=== PATIENT | male | born 1955 | race Caucasian/White ===

== ENCOUNTER 2022-10-08 22:39 | Inpatient (IN) | payer MEDICARE, OTHER ==
[~2022-10-08] VITALS: Ht 175.3 cm; Wt 58.2 kg
[2022-10-08 23:11] LABS: BASOPHILS ABSOLUTE AUTO 0.04 K/mm3 (0.00-0.23); BASOPHILS PERCENT AUTO 0 % (0-2); EOSINOPHILS PERCENT AUTO 0 % (0-6); Hematocrit 36.2 % (37.0-53.0); Hemoglobin 12.2 g/dL (13.5-17.5); IMMATURE GRAN ABSOLUTE AUTO 0.43 K/mm3 (0.00-0.10); IMMATURE GRAN PERCENT AUTO 2 % (0-1); LYMPHOCYTES ABSOLUTE AUTO 1.03 K/mm3 (0.84-5.20); LYMPHOCYTES PERCENT AUTO 4 % (21-46); MONOCYTES ABSOLUTE AUTO 0.96 K/mm3 (0.16-1.47); MONOCYTES PERCENT AUTO 3 % (4-13); Mean Corpuscular HGB 30.3 pg (26.0-34.0); Mean Corpuscular HGB Conc 33.7 g/dL (31.5-36.5); Mean Corpuscular Volume 90 fL (80-100); Mean Platelet Volume 9.2 fL (9.1-12.4); NEUTROPHILS ABSOLUTE AUTO 25.98 K/mm3 (1.96-9.15); NEUTROPHILS PERCENT AUTO 91 % (41-73); Platelet Count 368 K/mm3 (150-400); RDW Coefficient Variation 13.2 % (11.7-14.2); RDW Standard Deviation 43.4 fL (35.1-46.3); Red Blood Cell Count 4.03 M/mm3 (4.30-5.90); White Blood Cell Count 28.44 K/mm3 (4.00-11.30)
[2022-10-08 23:27] LABS: Albumin, Blood 2.7 g/dL (3.4-5.0); Albumin/Globulin Ratio 0.5 (0.8-1.8); Bun/Creatinine Ratio 31.7 (12.0-20.0); Calcium, Blood 9.1 mg/dL (8.5-10.1); Creatinine, Blood 0.95 mg/dL (0.60-1.20); Globulin, Blood 5.3 g/dL (2.2-4.0); Potassium, Blood 4.9 mmol/L (3.5-5.5)
[2022-10-08 23:59] LABS: Influenza B, PCR NEGATIVE (NEGATIVE); Resp Syncytial Virus, PCR NEGATIVE (NEGATIVE); SARS-Cov-2 (COVID-19) PCR, MMC NEGATIVE (NEGATIVE)
[2022-10-09 00:03] LABS: Influenza A, PCR POSITIVE (NEGATIVE)
[2022-10-09 02:03] LABS: Source, Urine Clean Catch
[2022-10-09 02:37] LABS: Appearance, Urine Clear (Clear); Bilirubin, Urine Neg (Neg); Blood, Urine 4+ (Neg); Color, Urine Yellow (P-Yellow); Glucose Qualitative, Urine Neg (Neg); Ketones, Urine 2+ (Neg); Leukocyte Esterase, Urine 1+ (Neg); Nitrite, Urine Neg (Neg); Protein, Urine 3+ (Neg); Urobilinogen, Urine 2+ (Normal)
[2022-10-09 02:49] LABS: Bacteria Mod /hpf; Red Blood Cells, Urine 0-2 /hpf (0-2); Squamous Epithelial Cells Mod /hpf (Few)
[2022-10-09 02:59] LABS: U Amphetamine Screen Not Detected; U Barbituate Screen Not Detected; U Benzodiazapine Screen Not Detected; U Buprenorphine Screen Not Detected; U Cannabinoids Screen Not Detected; U Cocaine Screen Not Detected; U Methadone Screen Not Detected; U Methamphetamine Screen Not Detected; U Opiates Screen DETECTED; U Oxycodone Screen Not Detected; U Phencyclidine Screen Not Detected; U Propoxyphene Screen Not Detected
[2022-10-09 05:58] LABS: BASOPHILS ABSOLUTE AUTO 0.03 K/mm3 (0.00-0.23); BASOPHILS PERCENT AUTO 0 % (0-2); EOSINOPHILS ABSOLUTE AUTO 0.01 K/mm3 (0.00-0.68); EOSINOPHILS PERCENT AUTO 0 % (0-6); Hematocrit 31.3 % (37.0-53.0); Hemoglobin 10.6 g/dL (13.5-17.5); IMMATURE GRAN ABSOLUTE AUTO 0.23 K/mm3 (0.00-0.10); IMMATURE GRAN PERCENT AUTO 1 % (0-1); LYMPHOCYTES ABSOLUTE AUTO 1.24 K/mm3 (0.84-5.20); LYMPHOCYTES PERCENT AUTO 6 % (21-46); MONOCYTES ABSOLUTE AUTO 0.77 K/mm3 (0.16-1.47); MONOCYTES PERCENT AUTO 4 % (4-13); Mean Corpuscular HGB 30.3 pg (26.0-34.0); Mean Corpuscular HGB Conc 33.9 g/dL (31.5-36.5); Mean Corpuscular Volume 89 fL (80-100); Mean Platelet Volume 9.4 fL (9.1-12.4); NEUTROPHILS ABSOLUTE AUTO 19.11 K/mm3 (1.96-9.15); NEUTROPHILS PERCENT AUTO 89 % (41-73); Platelet Count 316 K/mm3 (150-400); RDW Coefficient Variation 13.3 % (11.7-14.2); RDW Standard Deviation 43.8 fL (35.1-46.3); White Blood Cell Count 21.39 K/mm3 (4.00-11.30)
[2022-10-09 06:14] LABS: Albumin, Blood 2.2 g/dL (3.4-5.0); Albumin/Globulin Ratio 0.5 (0.8-1.8); Bilirubin, Total 0.9 mg/dL (0.1-1.0); Bun/Creatinine Ratio 30.9 (12.0-20.0); Calcium, Blood 8.4 mg/dL (8.5-10.1); Creatinine, Blood 0.91 mg/dL (0.60-1.20); Globulin, Blood 4.3 g/dL (2.2-4.0); Potassium, Blood 3.9 mmol/L (3.5-5.5); Total Protein, Blood 6.5 g/dL (6.4-8.2)
--- NOTE | 2022-10-09 17:58 | NUR ---
Patient admitted for Influenza A, droplet precautions in place. Patient AOx2, disoriented to time/situation. Nicotine patch placed on right shoulder. IV ABX & Solu-medrol given. Patient resting comfortably in bed. Continent at baseline, skin clead/dry/intact. Since hospitialized patient has been incontinent of bowel/bladder. Large soft BM this shift. Patient resting comfortably this afternoon, dry cough, Oxygen 3lpm. [facility]. Will continue plan of care & consult with care management for DC planing.
[2022-10-10 05:18] LABS: Hematocrit 32.1 % (37.0-53.0); Hemoglobin 10.5 g/dL (13.5-17.5); Mean Corpuscular HGB 29.5 pg (26.0-34.0); Mean Corpuscular HGB Conc 32.7 g/dL (31.5-36.5); Mean Corpuscular Volume 90 fL (80-100); Mean Platelet Volume 9.7 fL (9.1-12.4); Platelet Count 311 K/mm3 (150-400); RDW Coefficient Variation 13.3 % (11.7-14.2); RDW Standard Deviation 44.5 fL (35.1-46.3); Red Blood Cell Count 3.56 M/mm3 (4.30-5.90); White Blood Cell Count 10.99 K/mm3 (4.00-11.30)
--- NOTE | 2022-10-10 05:36 | NUR ---
Rn summary: Patient is pleasant and quiet. He has had no notable cough. He does have expiratory wheezes left lung with some courseness. Pt is on 3.5 liters, sats 98%. will titrate down to 2.5 liters. Pt did not eat dinner but has had 3 containers of whole milk this shift. He is weak, incontinent of urine with attends in place. He has rested well. Call light in reach.
[2022-10-10 05:56] LABS: Albumin, Blood 1.9 g/dL (3.4-5.0); Albumin/Globulin Ratio 0.4 (0.8-1.8); Bilirubin, Total 0.5 mg/dL (0.1-1.0); Bun/Creatinine Ratio 38.5 (12.0-20.0); Calcium, Blood 8.2 mg/dL (8.5-10.1); Creatinine, Blood 0.6 mg/dL (0.60-1.20); Globulin, Blood 4.3 g/dL (2.2-4.0); Potassium, Blood 4.3 mmol/L (3.5-5.5); Total Protein, Blood 6.2 g/dL (6.4-8.2)
[2022-10-10 07:11] LABS: BAND PERCENT MAN 8 % (0-8); BASOPHILS PERCENT MAN 0 % (0-2); EOSINOPHILS PERCENT MAN 0 % (0-6); LYMPHOCYTES ABSOLUTE MAN 0.43 K/mm3 (0.84-5.20); LYMPHOCYTES PERCENT MAN 4 % (21-46); MONOCYTES PERCENT MAN 0 % (4-13); NEUTROPHILS ABSOLUTE MAN 10.55 K/mm3 (1.96-9.15); SEG NEUTROPHILS PERCENT MAN 88 % (41-73); TOTAL CELLS COUNTED 100
--- NOTE | 2022-10-10 17:37 | NUR ---
DAYSHIFT SUMMARY Patient doing well, no acute changes to patient status. PT/OT evaluated patient today, patient worked with therapy, but would not get OOB. Patient is AOx2, but confused at times. Patient told therapy he is wheelchair bound. He is incontinent of B/B, unsure if that is his baseline. Titrated to 1lpm. Vitals stable. Transitioned from IV Solu-medrol to PO Prednisone, IV ABX given. Will continue plan of care, awaiting discharge planning.
[2022-10-11 05:15] LABS: Hematocrit 30.7 % (37.0-53.0); Hemoglobin 10.2 g/dL (13.5-17.5); Mean Corpuscular HGB 29.7 pg (26.0-34.0); Mean Corpuscular HGB Conc 33.2 g/dL (31.5-36.5); Mean Corpuscular Volume 89 fL (80-100); Mean Platelet Volume 9.9 fL (9.1-12.4); Platelet Count 315 K/mm3 (150-400); RDW Coefficient Variation 13.2 % (11.7-14.2); RDW Standard Deviation 43.3 fL (35.1-46.3); Red Blood Cell Count 3.44 M/mm3 (4.30-5.90); White Blood Cell Count 11.07 K/mm3 (4.00-11.30)
[2022-10-11 05:40] LABS: Albumin/Globulin Ratio 0.5 (0.8-1.8); Bilirubin, Total 0.4 mg/dL (0.1-1.0); Bun/Creatinine Ratio 42.2 (12.0-20.0); Calcium, Blood 8.5 mg/dL (8.5-10.1); Creatinine, Blood 0.55 mg/dL (0.60-1.20); Globulin, Blood 4.3 g/dL (2.2-4.0); Total Protein, Blood 6.3 g/dL (6.4-8.2)
--- NOTE | 2022-10-11 05:56 | NUR ---
MANAGER CASINO SUMMARY: A&Ox2-3. QUIET AND ANSWERS QUESTIONS, OCCASIONALLY, BUT MOSTLY AVOIDS EYE CONTACT AND DOES NOT ANSWER QUESTIONS. DID NOT EAT ANY OF HIS DINNER LAST NIGHT. INCONTINENT OF URINE AND CHANGED TWICE T/O THE NIGHT. VSS. LABS DRAWN THIS AM. CALL FROM LAB STATING PRELIM BLOOD CULTURES POSITIVE FOR GRAM+ BACILLI AND WILL BE REVIEWED BY MICRO THIS AM. TELE GRETTA W/ [facility]. ASYMPTOMATIC. WILL REPORT TO ONCOMING RN.
[2022-10-11 06:04] LABS: BAND PERCENT MAN 3 % (0-8); BASOPHILS PERCENT MAN 0 % (0-2); EOSINOPHILS PERCENT MAN 0 % (0-6); LYMPHOCYTES % ATYPICAL MANUAL 2 % (0-0); LYMPHOCYTES ABSOLUTE MAN 1.21 K/mm3 (0.84-5.20); LYMPHOCYTES PERCENT MAN 9 % (21-46); MONOCYTES ABSOLUTE MAN 0.33 K/mm3 (0.16-1.47); MONOCYTES PERCENT MAN 3 % (4-13); NEUTROPHILS ABSOLUTE MAN 9.52 K/mm3 (1.96-9.15); SEG NEUTROPHILS PERCENT MAN 83 % (41-73); TOTAL CELLS COUNTED 100
--- NOTE | 2022-10-11 18:14 | NUR ---
PT HAS BEEN AOX4 AND COOPERATIVE OF CARE. PT IS INCONTENT AND DOES NOT REQUEST URINAL. PT DOES HAVE A BIT OF A FLAT AFFECT AT TIMES. CALL LIGHT IS WITHIN REACH AND BED ALARM IN PLACE WILL CONTINUE TO MONITOR.
--- NOTE | 2022-10-12 04:15 | NUR ---
SHIFT SUMMARY; NO ACUTE CHANGES OVERNIGHT. PT RESTED IN BED THROUGHOUT THE NIGHT. PT IS AXO X3. PT DOES NOT USE THE CALL LIGHT BUT RATHER REPORTS TO STAFF WHEN HIS ATTENDS ARE WET. PT HAS NOT AMBULATED YET. WHEN PT IS SLEEPING HIS HR BRADYS DOWN TO LOW 39 FOR A SECOND BEFORE IT REMAINS STABLE IN THE 40'S. CIWA DONE EARLY THIS EVENING, THE SCORE WAS 3, INDICATING STABLE WITHDRAWL IF PT IS INFACT WITHDRAWLING. PT WITH NO TREMORS, N/V, HEADACHE, TACTILE, AUDITORY OR VISUAL HALLUCINATIONS AT THIS TIME. PT CURRENTLY RESTING IN BED WITH THE BED IN THE LOWEST POSITION AND THE CALL LIGHT AT BEDSIDE.
[2022-10-12 05:44] LABS: Albumin, Blood 2.1 g/dL (3.4-5.0); Albumin/Globulin Ratio 0.5 (0.8-1.8); Bilirubin, Total 0.4 mg/dL (0.1-1.0); Bun/Creatinine Ratio 46.1 (12.0-20.0); Calcium, Blood 8.7 mg/dL (8.5-10.1); Creatinine, Blood 0.54 mg/dL (0.60-1.20); Globulin, Blood 4.4 g/dL (2.2-4.0); Potassium, Blood 4.2 mmol/L (3.5-5.5); Total Protein, Blood 6.5 g/dL (6.4-8.2)
--- NOTE | 2022-10-12 16:40 | NUR ---
NO ACUTE CHANGES AOX4 AND COOPERATIVE OF CARE. PT RESTING IN BED AND DOES NOT CALL WHEN HE NEEDS TO VOID. PT IS INCONTENT AND WILL TELL CAREGIVERS WHEN HE NEEDS CHANGED. NO DISTRESS NOTED AT THIS TIME WILL CONTINUE TO MONITOR.
--- NOTE | 2022-10-13 04:24 | NUR ---
SHIFT SUMMARY; NO ACUTE CHANGES OVERNIGHT. THE PTS O2 SATS REMAIN STABLE ON 2L NC. THE PT DOES RUN BRADYCARDIC THROUGHOUT THE NIGHT, GOING LOW AT 36 FOR A SECOND BEFORE STABLIZNG BETWEEN 45-48 WHILE SLEEPING. WHEN THE PT IS AWAKE THE, PTS HEART RATE IS RIGHT AROUND 55 BPM. PT CONTINUES TO HAVE A FLAT, RATHER WITHDRAWN AFFECT. PT IS AX0 X3-4, ABLE TO FOLLOW COMMANDS. PT REMAINS INCONTINENT THROUGHOUT THE NIGHT, HOWEVER THE PT IS ABLE TO COMMUNICATE WHEN HIS ATTENDS ARE WET AND NEED TO BE CHANGED. KADY PT IS AWAITING PLACEMENT TO BE DC'D. PRESENTLY THE PT IS RESTING IN BED WITH THE BED IN THE LOWEST POSITION AND THE CALL LIGHT IN THE BED WITH THE PT.
[2022-10-13 05:31] LABS: Hematocrit 33.4 % (37.0-53.0); Hemoglobin 10.9 g/dL (13.5-17.5)
[2022-10-13 05:56] LABS: Albumin, Blood 2.1 g/dL (3.4-5.0); Albumin/Globulin Ratio 0.5 (0.8-1.8); Bilirubin, Total 0.5 mg/dL (0.1-1.0); Bun/Creatinine Ratio 39.8 (12.0-20.0); Calcium, Blood 8.9 mg/dL (8.5-10.1); Creatinine, Blood 0.5 mg/dL (0.60-1.20); Globulin, Blood 4.5 g/dL (2.2-4.0); Potassium, Blood 3.9 mmol/L (3.5-5.5); Total Protein, Blood 6.6 g/dL (6.4-8.2)
--- NOTE | 2022-10-13 11:35 | NUR ---
Spoke with Dr Lopez prior to Pt visit and discussed case. Pt has been declining offers to get out of bed and is refusing to eat. Spoke with Primary RN Nina and discussed case. Pt requested ensure shake and is no longer requiring oxygen support. Brief supportive visit with Pt to establish rapport. Pt resting in bed and appears weak and frail. Pt reports enjoying his ensure shake. [facility]. He reports no family. Encouraged Pt to get out of bed when offered to assist with strength and overall well being. Ended visit to allow Pt to rest. Pt agreeable for F/U visits. Palliative Care will remain available.
--- NOTE | 2022-10-13 16:24 | NUR ---
SHIFT SUMMARY PT INCONT/CONT THIS SHIFT. POOR APPETITE BUT EATING SOME. PT LIKES CHOCOLATE ENSURES. WORKED WITH OT AND GOT UP TO CHAIR WITH MINMAL ASSIST. LITTLE MOVITATION TO DO MUCH. PT WANTING TO GET BACK IN BED, BUT ENCOURAGED TO STAY UP FOR DINNER IF POSSIBLE. PT STATES HE WILL TRY AT THIS TIME. TITRATED OFF OF O2 THIS AM AND TOLERATING RA AT 98%. NO OTHER ACUTE CHANGES IN ASSESSMENT AT THIS TIME. VS REVIEWED. CALL LIGHT IN REACH. DENIES OTHER NEEDS AT THIS TIME.
--- NOTE | 2022-10-14 05:14 | NUR ---
SHIFT SUMMARY NO ACUTE CHANGES OVERNIGHT. PT HAS A FLAT AFFECT, WITHDRAWN BUT COOPERATIVE WITH CARE. BEDREST. DENIES PAIN. VSS. POOR APPETITE. ENC TO DRINK AND OFFERED ENSURE. TOLERATING PO INTAKE DENIES N/V. DENIES CHEST PAIN AND SOB. SLEPT GOOD OVERNIGHT. CALL LIGHT WITHIN REACH. WILL PROVIDE REPORT TO ONCOMING NURSE.
[2022-10-14 06:51] LABS: BASOPHILS ABSOLUTE AUTO 0.01 K/mm3 (0.00-0.23); BASOPHILS PERCENT AUTO 0 % (0-2); EOSINOPHILS ABSOLUTE AUTO 0.03 K/mm3 (0.00-0.68); EOSINOPHILS PERCENT AUTO 0 % (0-6); Hematocrit 34.1 % (37.0-53.0); Hemoglobin 11.3 g/dL (13.5-17.5); IMMATURE GRAN ABSOLUTE AUTO 0.23 K/mm3 (0.00-0.10); IMMATURE GRAN PERCENT AUTO 2 % (0-1); LYMPHOCYTES ABSOLUTE AUTO 2.33 K/mm3 (0.84-5.20); LYMPHOCYTES PERCENT AUTO 22 % (21-46); MONOCYTES ABSOLUTE AUTO 1.09 K/mm3 (0.16-1.47); MONOCYTES PERCENT AUTO 10 % (4-13); Mean Corpuscular HGB 29.7 pg (26.0-34.0); Mean Corpuscular HGB Conc 33.1 g/dL (31.5-36.5); Mean Corpuscular Volume 90 fL (80-100); Mean Platelet Volume 9.8 fL (9.1-12.4); NEUTROPHILS ABSOLUTE AUTO 7.12 K/mm3 (1.96-9.15); NEUTROPHILS PERCENT AUTO 66 % (41-73); Platelet Count 353 K/mm3 (150-400); RDW Coefficient Variation 12.9 % (11.7-14.2); RDW Standard Deviation 41.9 fL (35.1-46.3); Red Blood Cell Count 3.81 M/mm3 (4.30-5.90); White Blood Cell Count 10.81 K/mm3 (4.00-11.30)
[2022-10-14 07:12] LABS: Albumin, Blood 2.3 g/dL (3.4-5.0); Albumin/Globulin Ratio 0.6 (0.8-1.8); Bilirubin, Total 0.4 mg/dL (0.1-1.0); Bun/Creatinine Ratio 47.7 (12.0-20.0); Calcium, Blood 8.6 mg/dL (8.5-10.1); Creatinine, Blood 0.5 mg/dL (0.60-1.20); Potassium, Blood 3.8 mmol/L (3.5-5.5); Total Protein, Blood 6.3 g/dL (6.4-8.2)
--- NOTE | 2022-10-14 19:35 | NUR ---
pt is a/ox3, pleasant and cooperative. the pt seems a little irriatable at times but cooperative. pt appears to be breathing easily on ra. pt was up to shower today useing the fww. pt was able to eat some small potions of his meals today.t denied any pain. call light in reach
[2022-10-15 05:40] LABS: Hematocrit 34.2 % (37.0-53.0); Hemoglobin 11.1 g/dL (13.5-17.5)
[2022-10-15 06:15] LABS: Albumin, Blood 2.3 g/dL (3.4-5.0); Albumin/Globulin Ratio 0.5 (0.8-1.8); Bilirubin, Total 0.6 mg/dL (0.1-1.0); Calcium, Blood 8.7 mg/dL (8.5-10.1); Creatinine, Blood 0.55 mg/dL (0.60-1.20); Globulin, Blood 4.2 g/dL (2.2-4.0); Total Protein, Blood 6.5 g/dL (6.4-8.2)
--- NOTE | 2022-10-15 18:03 | NUR ---
SHIFT SUMMARY NO ACUTE CHANGES THIS SHIFT. PT HAS REMAINED IN BED ALL SHIFT, ASKING FOR ASSISTANCE WHEN NEEDED. HIS INTAKE HAS IMPROVED AND ENJOYS ENSURE. PLACEMENT IS IN THE PROCESS, TRYING TO FIND HIM A PLACE TO GO AFTER DISCHARGE. WILL REPORT TO ONCOMING NURSE.
--- NOTE | 2022-10-16 06:13 | NUR ---
SHIFT SUMMARY: PT IS ALERT WITH SOME CONFUSION AT BASELINE. PT IS CALM AND COOPERATIVE WITH CARE. PT SLEPT MUCH OF THE NIGHT WITHOUT INCIDENT. PT DENIES PAIN, NAUSEA, VOMITING, AND SOB. NO ACUTE CHANGES OR COMPLICATION. AWAITING PLACEMENT. WILL REPORT TO DAY NURSE.
--- NOTE | 2022-10-16 18:39 | NUR ---
SHIFT SUMMARY IS ALERT THOUGH SOMEWHAT CONFUSED, IS AT BASELINE. NO ACUTE CHANGES TODAY. USES CALL LIGHT FOR NEEDS. IS PLEASANT & COOPERATIVE WITH ALL CARE. IV DC'D TODAY. NO LONGER NEEDED. PLAN IS FOR PLACEMENT UPON DC.
--- NOTE | 2022-10-17 04:54 | NUR ---
SHIFT SUMMARY NO ACUTE CHANGES THIS SHIFT. VSS. AXO. SOMEWHAT LETHARGIC. PT NOT INVOLVED WITH CARE. FLAT AFFECT BUT COOPERATIVE. ON RA. HAS BEEN INCONTINENT, BRIEF CHANGES IN PLACE. PATIENT REPOSITIONING SELF IN BED. PT HAS BEEN RESTING FOR MOST OF SHIFT BUT HAS USED CALL LIGHT APPROPRIATELY TO EXPRESS NEEDS.
--- NOTE | 2022-10-17 18:36 | NUR ---
SHIFT SUMMARY PT A&O X 2 TO 3. NO ACUTE CHANGES TODAY. APPETITE IS GOOD. IS STDBY ASSIST W/WALKER FOR RESTROOM USE. AWAITING SNF PLACEMENT.
--- NOTE | 2022-10-18 05:06 | NUR ---
CONSULTANT INTERNSHIP SUMMARY NO ACUTE CHANGES; PT IS WITHDRAWN. SLEPT WELL T/O THE NIGHT. USES CALL LIGHT APPROPRIATELY F/NEEDS. A/OX3. PT IS AWAITING SNF PLACEMENT T/DISCHARGE. CALL LIGHT IN REACH.
--- NOTE | 2022-10-18 18:42 | NUR ---
PATIENT IS ON ROOM AIR, NO IV ACCESS, WAITING FOR PLACEMENT. HE HAS A COUGH THIS SHIFT, WHICH HE REPORTS NEW. SPUTUM WAS NOT SEEN BUT PATIENT STATES IT IS PRESENT. SKIN LOOKS GOOD-APPEARS THAT THE CELLULITIS HAS RESOLVED. NO OTHER CONCERNS.
--- NOTE | 2022-10-19 04:55 | NUR ---
CASINO OPERATIONS SUPERVISOR SUMMARY NO ACUTE EVENTS. PT 1PA T/BATHROOM. USES CALL LIGHT AND ABLE TO MAKE NEEDS KNOWN. PT WITHDRAWN AND RESPONSES ARE SLOW BUT APPROPRIATE. ON RA. REVIEWED VITALS; VSS. CALL LIGHT IN REACH.
--- NOTE | 2022-10-19 17:51 | NUR ---
THIS SHIFT, PATIENT REPORTED THAT HIS COUGH WILL SOMETIMES PRODUCE YELLOW SPUTUM. PROVIDER UPDATED. MARTHA CASTRO. NO OTHER NEW CONCERNS- WE ARE STILL AWAITING PLACEMENT FOR PATIENT.
--- NOTE | 2022-10-20 04:51 | NUR ---
APPEALS REFEREE SUMMARY NO ACUTE CHANGES. PT REMAINS WITHDRAWN. WILL USE CALL LIGHT AND ADVOCATE F/NEEDS. A/OX4; SLOW TO RESPOND. PT HAD THREE EPISODES OF INCONTINENCE REQUIRED BEDDING/BRIEF CHANGE; THE PREVIOUS NIGHT, PT WOULD CALL F/ASSISTANCE T/AMBULATE TO BATHROOM WITHOUT INCIDENT.
--- NOTE | 2022-10-20 17:51 | NUR ---
SHIFT SUMMARY NO ACUTE CHANGES DURING SHIFT. PT ALERT AND ORIENTED, CALLS APPROPRIATELY. PT WITH INTERMITTENT INCONTINENCE. PT REMAINS ON RA, SBA WITH FWW TO BATHROOM. NO C/O PAIN NOTED. PT PENDING PLACEMENT. WILL CONTINUE TO MONITOR. CALL HIRAL GARCIA.
--- NOTE | 2022-10-21 04:29 | NUR ---
SHIFT UNREMARKABLE. PATIENT TOOK 2100 MEDICATIONS WITHOUT DIFFICULTY. CALL LIGHT USED APPROPRIATELY, 1 PERSON ASSIST TO TOILET. PATIENT SLEPT THROUGH MOST OF SHIFT. CALL LIGHT LEFT WITHIN REACH.
--- NOTE | 2022-10-21 16:57 | NUR ---
SHIFT SUMMARY NO ACUTE CHANGES DURING SHIFT. PT ALERT AND ORIENTED, CALLS APPROPRIATELY. PT INCONTINENT AT TIMES, OTHER TIMES PT SBA WITH FWW TO BATHROOM. NO IV IN PLACE. PT TO D/C TO FACILITY ON THURSDAY. CONTINUE TO MONITOR. CALL LIGHT WITHIN REACH.
--- NOTE | 2022-10-22 04:12 | NUR ---
SHIFT UNREMARKABLE. PATIENT TOOK 2100 MEDICATION WITHOUT DIFFICULTY AND SLEPT THROUGH MOST OF REMAINDER OF SHIFT. REQUESTED ASSISTANCE TO USE RESTROOM APPROPRIATELY. CALL LIGHT LEFT WITHIN REACH.
--- NOTE | 2022-10-22 17:33 | NUR ---
SHIFT SUMMARY UP TO CHAIR FOR MEALS. NO RESPIRATORY DISTRESS NOTED. TOOK A SHOWER TODAY. PLANS FOR DISCHARGE TO FACILITY ON THURSDAY.
--- NOTE | 2022-10-23 08:27 | NUR ---
RN NEONATAL SUMMARY NO CHANGES FOR ROXANNA OVERNIGHT. AFFECT IS FLAT. HE ANSWERS QUESTIONS WITH ONE WORD, AND DID NOT COMPLAIN ABOUT ANYTHING. HE CLEARLY DID NOT WANT TO BE BOTHERED. HEART TONES ARE REGULAR, LUNGS DIM IN DEPENDENT AREAS. BS PRESENT TIMES 4. AWAITING DISCHARGE TO SNF ON [facility] ON THURSDAY
[2022-10-23] MEDS ORDERED: ALBU2.5V5 INH (11:40)
[2022-10-23] MEDS ORDERED: Nicoderm Cq1 EAC1 TOP (11:40)
--- NOTE | 2022-10-23 19:33 | NUR ---
SHIFT SUMMARY PATIENT ALERT AND ORIENTED. WITHDRAWN AFFECT AND BEHAVIOR. SBA WITH FWW TO BATHROOM. TOLERATING MEALS AND LIQUIDS. PLAN TO DISCHARGE TO [facility] ON THE [facility] TOMORROW 10/24/22 AT 1000. NO IV.
--- NOTE | 2022-10-24 06:07 | NUR ---
NO CHANGES OVERNIGHT FOR CHETNA. HE IS ANXIOUS TO BE GOING HOME, MILD BACK PAIN FIXED WITH APAP.
[2022-10-24] MEDS ORDERED: FLUTICASONE-SA1 EAC1 INH (10:07)
--- NOTE | 2022-10-24 11:29 | NUR ---
RAFFY CARLSONRGED, TRANSPORTATION TO [facility]
== END 2022-10-24 11:37 | disposition home health service (06) | DRG 871 ==
LOC: ER 22:39 → ERHOLD 22:40 → MEDS 10-09 02:37 → ERHOLD 10-09 02:38 → MEDS 10-09 14:22 → ENPENDDIS 10-23 16:47 → MEDS 10-24 11:37
PROVIDERS: Emergency Medicine; Family Medicine; ADMIT Internal Medicine
DX: A41.9 Sepsis, unspecified organism (principal); G92.8 Other toxic encephalopathy; J10.00 Influenza due to other identified influenza virus with unspecified type of pneumonia; J96.21 Acute and chronic respiratory failure with hypoxia; J44.1 Chronic obstructive pulmonary disease with (acute) exacerbation; N39.0 Urinary tract infection, site not specified; L03.116 Cellulitis of left lower limb; E87.1 Hypo-osmolality and hyponatremia; Z68.1 Body mass index [BMI] 19.9 or less, adult; J44.0 Chronic obstructive pulmonary disease with (acute) lower respiratory infection; R64 Cachexia; Z51.5 Encounter for palliative care; R65.20 Severe sepsis without septic shock; R62.7 Adult failure to thrive; F11.10 Opioid abuse, uncomplicated; F17.210 Nicotine dependence, cigarettes, uncomplicated; F10.20 Alcohol dependence, uncomplicated; W18.30XA Fall on same level, unspecified, initial encounter; Z59.00 Homelessness unspecified; Z20.822 Contact with and (suspected) exposure to COVID-19
CPT/HCPCS: 0241U; 36415; 70450; 71045; 80053; 81001; 83605; 83880; 85014; 85018; 85025; 87040; 87086; 93005; 93010; 93970; 94640; 94664; 94760; 96365; 96375; 97110-CQ; 97116; 97162; 97165; 97530; 97535; 99285-25; A9270; J0456; J0690; J1650; J2543; J2930; J7030; J7050; J7512